=== PATIENT | male | born 1975 | race Hispanic/Latino ===

== ENCOUNTER 2018-02-09 09:34 | Emergency (ER) | payer SELFPAY ==
[2018-02-09] MEDS ORDERED: Adacel (T-DAP) 0.5 ML VIAL ONE (10:08)
== END 2018-02-09 11:18 | disposition home or self-care (01) ==
LOC: ERS 09:34
DX: S01.21XA Laceration without foreign body of nose, initial encounter (principal); Z23 Encounter for immunization; W26.8XXA Contact with other sharp object(s), not elsewhere classified, initial encounter
CPT/HCPCS: 90471; 90715